=== PATIENT | female | born 1995 | race Caucasian/White ===

== ENCOUNTER 2017-08-11 12:04 | Emergency (ER) | payer OTHER ==
[2017-08-11 12:14] VITALS: RESP 16
[2017-08-11] MEDS ORDERED: BUTALB/APAP/CAFF 50-325-40MG TAB PO STA (12:26)
--- NOTE | 2017-08-11 12:40 | ED ---
General Adult HPI - General Chief complaint: Neuro Symptoms/Deficit Stated complaint: Numbness in Face, word slurring Time Seen by Provider: 08/11/17 12:19 Source: patient, family, RN notes reviewed Mode of arrival: ambulatory Limitations: no limitations - History of Present Illness Initial comments: This a 22-year-old female presents emergency Department chief complaint of numbness in her arm, slurred speech. Patient states that she woke up was in the kitchen trying to make muffins when she noticed that her right arm was numb from her elbow down. She states that she does not have any associated weakness. She states that she also noticed some numbness in her face. She had no lower extremity symptoms. Patient states that she was telling her mom on discussed above going to the chiropractor history that she fell she slept on it wrong. She states then she was having trouble articulating words. She states is only lasted a few seconds. She states all her symptoms have resolved at this time though she has some pressure in the right side of her head and feels that she is developing a migraine. She states that she typically has migraine on her menstrual cycle this is very common for her. Patient denies chest pain, palpitations, dizziness, blurred vision, illicit drug use, dysuria or hematuria. - Related Data Home Medications Medication Instructions Recorded Confirmed Fexofenadine HCl [Tia Allergy] 180 mg PO DAILY 08/11/17 08/11/17 Vienva 1 tab PO DAILY 08/11/17 08/11/17 Previous Rx's Medication Instructions Recorded SUMAtriptan SUCCINATE [Imitrex] 25 mg PO ONCE #10 tablet 08/11/17 Allergies Allergy/AdvReac Type Severity Reaction Status Date / Time tramadol Allergy Hallucinati Verified 08/11/17 12:18 ons codeine AdvReac Nausea & Verified 08/11/17 12:18 Vomiting Review of Systems ROS Statement: Those systems with pertinent positive or pertinent negative responses have been documented in the HPI. ROS Other: All systems not noted in ROS Statement are negative. Past Medical History Past Medical History: No Reported History Additional Past Medical History / Comment(s): recent uti History of Any Multi-Drug Resistant Organisms: None Reported Past Surgical History: Adenoidectomy, Tonsillectomy Additional Past Surgical History / Comment(s): l ear cyst removed Past Psychological History: No Psychological Hx Reported Smoking Status: Never smoker Past Alcohol Use History: None Reported Past Drug Use History: None Reported General Exam Limitations: no limitations General appearance: alert, in no apparent distress Head exam: Present: atraumatic, normocephalic, normal inspection Eye exam: Present: normal appearance, PERRL, EOMI. Absent: scleral icterus, conjunctival injection, periorbital swelling ENT exam: Present: normal exam, normal oropharynx, mucous membranes moist, TM's normal bilaterally, normal external ear exam Neck exam: Present: normal inspection, full ROM. Absent: tenderness, meningismus, lymphadenopathy Respiratory exam: Present: normal lung sounds bilaterally. Absent: respiratory distress, wheezes, rales, rhonchi, stridor Cardiovascular Exam: Present: regular rate, normal rhythm, normal heart sounds. Absent: systolic murmur, diastolic murmur, rubs, gallop, clicks GI/Abdominal exam: Present: soft, normal bowel sounds. Absent: distended, tenderness, guarding, rebound, rigid Extremities exam: Present: normal inspection, full ROM, normal capillary refill. Absent: tenderness, pedal edema, joint swelling, calf tenderness Back exam: Present: normal inspection, full ROM. Absent: tenderness Neurological exam: Present: alert, oriented X3, CN II-XII intact, reflexes normal, other ([id number] intact bilaterally without overshooting. GCS 15, NIH 0). Absent: motor sensory deficit Skin exam: Present: warm, dry, intact, normal color. Absent: rash Course Vital Signs 08/11/17 12:10 Temperature 97.6 F Pulse Rate 88 Respiratory 16 Rate Blood Pressure 120/86 O2 Sat by Pulse 99 Oximetry Medical Decision Making - Medical Decision Making 22-year-old female presented emergency department with headache migraine type symptoms with associated paresthesias. Patient's symptoms her more consistent with a typical migraine headache possible anxiety issues. Patient is 100% symptom-free this is less likely to be any evidence of TIA or CVA. CT is normal. Patient will be discharged with Imitrex for migraine headaches and return for any return of symptoms are worsening symptoms. Disposition Clinical Impression: Atypical migraine Disposition: HOME SELF-CARE Condition: Stable Instructions: Migraine Headache (ED) Additional Instructions: Please return to the Emergency Department if symptoms worsen or any other concerns. Prescriptions: SUMAtriptan SUCCINATE [Imitrex] 25 mg PO ONCE #10 tablet Referrals: Ector Hutton Jr, [Primary Care Provider] - 1-2 days Time of Disposition: 13:29
--- NOTE | 2017-08-11 12:48 | CT ---
EXAMINATION TYPE: CT brain wo con DATE OF EXAM: 08/11/2017 COMPARISON: NONE HISTORY: Patient complains of episode of right side numbness and dysphasia. Patient has had headache since episode. CT DLP: 761.[address] of the brain was performed. The ventricles, basal cisterns and sulci overlying the cerebral convexities demonstrate a normal appe arance. There is no evidence for intracranial hemorrhage or sulcal effacement. No mass effects are seen. Osseous calvarium is intact. Mild chronic ethmoidal sinusitis. If symptoms persist consider MRI as clinically warranted. IMPRESSION: 1. No acute intracranial process is seen at this time.
[2017-08-11] MEDS ORDERED: diphenhydrAMINE 50 MG CAP PO STA (13:26)
[2017-08-11] MEDS ORDERED: KETOROLAC 60 MG/2 ML VIAL IM STA (13:26)
[2017-08-11 13:35] VITALS: BP 117/73; PULSE 64; TEMP 97.9
== END 2017-08-11 13:45 | disposition home or self-care (01) ==
LOC: EC 12:04
DX: G43.909 Migraine, unspecified, not intractable, without status migrainosus (principal); R40.2412 Glasgow coma scale score 13-15, at arrival to emergency department; Z79.3 Long term (current) use of hormonal contraceptives; Z79.899 Other long term (current) drug therapy; Z88.5 Allergy status to narcotic agent
CPT/HCPCS: 70450; 99285; 96372; J1885

== ENCOUNTER → 2018-04-05 | Outpatient (CLI) | payer OTHER ==
--- NOTE | 2018-04-05 18:48 | XR ---
EXAMINATION TYPE: XR cervical spine w flex/ext DATE OF EXAM: 04/05/2018 COMPARISON: NONE HISTORY: Neck pain TECHNIQUE: 6 views FINDINGS: Vertebra have normal spacing and alignment. Posterior elements are intact. There are no cer vical ribs. Atlantoaxial facet joint is normal. Additional flexion-extension views show no sign of in stability. IMPRESSION: Normal cervical spine. No evidence of instability.
== END | disposition home or self-care (01) ==
LOC: RADXRMAIN 17:34
PROVIDERS: ATTEND Chiropractor
DX: S13.130A Subluxation of C2/C3 cervical vertebrae, initial encounter (principal); S13.4XXA Sprain of ligaments of cervical spine, initial encounter; G43.D1 Abdominal migraine, intractable
CPT/HCPCS: 72052

== ENCOUNTER → 2018-04-20 | Outpatient (CLI) | payer OTHER ==
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
== END | disposition home or self-care (01) ==
LOC: RADCTMAIN 16:35
PROVIDERS: ATTEND Family Medicine
DX: S00.83XA Contusion of other part of head, initial encounter (principal); G89.11 Acute pain due to trauma; G44.321 Chronic post-traumatic headache, intractable; Z88.5 Allergy status to narcotic agent
CPT/HCPCS: 70450; 72125

== ENCOUNTER → 2019-04-24 | Outpatient (CLI) | payer BC ==
[2019-04-24 10:59] LABS: Basophils % (A) 1 %; Eosinophils # (A) 0.1 k/uL (0-0.7); Eosinophils % (A) 1 %; HCT 42.2 % (34.0-46.0); HGB 13.9 gm/dL (11.4-16.0); Lymphocytes # (A) 1.7 k/uL (1.0-4.8); Lymphocytes % (A) 23 %; MCH 26.9 pg (25.0-35.0); MCHC 32.8 g/dL (31.0-37.0); MCV 81.9 fL (80.0-100.0); Mean Platelet Volume 8.6; Monocytes # (A) 0.4 k/uL (0-1.0); Monocytes % (A) 5 %; Neutrophils # (A) 5.2 k/uL (1.3-7.7); Neutrophils % (A) 69 %; Platelet Count 220 k/uL (150-450); RBC 5.16 m/uL (3.80-5.40); RDW 13.7 % (11.5-15.5); WBC 7.4 k/uL (3.8-10.6)
[2019-04-24 17:27] LABS: Vitamin D 25 Hydroxy 37.9 ng/mL (30.0-100.0)
[2019-04-24 17:56] LABS: ALT 15 U/L (8-44); AST 23 U/L (13-35); African American GFR (CKD) 121.3 (60.0-200.0); Albumin/Globulin Ratio 2.56 (1.60-3.17); Alkaline Phosphatase 80 U/L (41-126); C Reactive Protein <0.4 mg/dL (0.0-0.8); Calcium 9.3 mg/dL (8.7-10.3); Carbon Dioxide 25.2 mmol/L (21.6-31.8); Chloride 106 mmol/L (96-109); Chol/HDL Ratio 2.07; Cholesterol 114 mg/dL (0-200); Globulin 1.8 g/dL (1.6-3.3); Glucose 84 mg/dL (70-110); Potassium 4.6 mmol/L (3.5-5.5); Sodium 140 mmol/L (135-145); Total Bilirubin 0.8 mg/dL (0.3-1.2); Total Protein 6.4 g/dL (6.2-8.2); Triglycerides <50.0 mg/dL (0.0-149.0); VLDL Calculation 9.98 mg/dL (5.00-40.00)
[2019-04-24 19:26] LABS: Folate, Serum 13.8 ng/mL
[2019-04-24 19:39] LABS: Hemoglobin A1C 5.1 % (4.0-6.0)
== END | disposition home or self-care (01) ==
LOC: LABWHC1 10:06
PROVIDERS: ATTEND Clinical Nurse Specialist Psychiatric/Mental Health
DX: F31.81 Bipolar II disorder (principal)
CPT/HCPCS: 36415; 80053; 80061; 82248; 82306; 82746; 83036; 84439; 84443; 84479; 85025; 86140

== ENCOUNTER 2019-10-13 18:23 | Emergency (ER) | payer BC ==
--- NOTE | 2019-10-13 19:20 | CT ---
EXAMINATION TYPE: CT brain cspine wo con DATE OF EXAM: 10/13/2019 COMPARISON: 04/20/2018 HISTORY: Fall, left arm numbness. CT DLP: 1162.4 mGycm. Automated Exposure Control for Dose Reduction was Utilized. TECHNIQUE: CT scan of the head and cervical spine are performed without contrast. FINDINGS: There is no acute intracranial hemorrhage, mass effect, or midline shift identified. The ventricles and sulci are within normal limits in size. Small mucosal retention cyst in the right inf erior maxillary sinus. The globes are intact and the remaining visualized sinuses are clear. Cerebel lar tonsils are incidentally noted to be low-lying, likely congenital. Cervical spine is visualized in its entirety from C1 through upper thoracic levels and demonstrates s atisfactory alignment without evidence of acute fracture or dislocation. Prevertebral soft tissue ap pears within normal limits. The C1-C2 articulation is unremarkable. Reversal of the usual cervical lordosis. Evaluation of the spinal canal is limited on CT. IMPRESSION: 1. There is no acute fracture or dislocation evident in the cervical spine. Evaluation of the spinal canal is limited on CT. 2. No acute intracranial hemorrhage, mass effect, or midline shift is seen. 3. Reversal usual cervical lordosis that may be on the basis of muscular strain/spasm or patient posi tioning.
--- NOTE | 2019-10-13 19:28 | CT ---
EXAMINATION TYPE: CT thoracic spine wo con DATE OF EXAM: 10/13/2019 COMPARISON: None HISTORY: Fall, left arm numbness and back pain. CT DLP: 613.8 mGycm Automated exposure control for dose reduction was used. FINDINGS: There is a mild compression deformity of less than 10% vertebral body height loss of the T4 vertebral body at the superior endplate. No retropulsion is seen. No extension into the posterior elements. Vi sualized portions of the ribs appear intact and unremarkable. Spinal canal is limited on CT. Remainde r the vertebral body heights of the thoracic spine are maintained. No malalignment seen. Visualized portions of the lungs are well aerated. Limited images of the unenhanced upper abdomen are grossly unremarkable. Unenhanced portions of the mediastinum are also grossly unremarkable. IMPRESSION: ACUTE MILD COMPRESSION DEFORMITY OF THE T4 VERTEBRAL BODY WITH VERTEBRAL BODY HEIGHT LOSS OF LESS ROLANDO N 10%. NO EXTENSION INTO THE POSTERIOR ELEMENTS. GIVEN THE LEFT ARM NUMBNESS SPINAL CORD INJURY CANNO T BE EXCLUDED. MRI COULD EVALUATE FOR SPINAL CORD TRAUMA.
[2019-10-13] MEDS ORDERED: DEXAMETHASONE SOD PHOSPHATE 10 MG/ML 1 ML VIAL IM STA (19:45)
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
[2019-10-13 20:08] VITALS: BP 123/83; PULSE 87; RESP 16; TEMP 98.1
== END 2019-10-13 20:57 | disposition short-term general hospital (02) ==
LOC: EC 18:23
DX: M54.6 Pain in thoracic spine (principal); M43.8X4 Other specified deforming dorsopathies, thoracic region; R29.898 Other symptoms and signs involving the musculoskeletal system; R20.0 Anesthesia of skin; R20.2 Paresthesia of skin; R51 Headache; Z88.5 Allergy status to narcotic agent; W03.XXXA Other fall on same level due to collision with another person, initial encounter; Y93.6A Activity, physical games generally associated with school recess, summer camp and children
CPT/HCPCS: 72128; 72125; 70450; 99284; 96372; J1100

== ENCOUNTER → 2020-06-12 | Outpatient (CLI) | payer BC ==
[2020-06-12 12:16] LABS: Basophils # (A) 0.1 k/uL (0-0.2); Basophils % (A) 1 %; Eosinophils # (A) 0.1 k/uL (0-0.7); Eosinophils % (A) 1 %; HCT 46.3 % (34.0-46.0); HGB 14.7 gm/dL (11.4-16.0); Lymphocytes # (A) 1.9 k/uL (1.0-4.8); Lymphocytes % (A) 33 %; MCH 27.4 pg (25.0-35.0); MCHC 31.8 g/dL (31.0-37.0); MCV 86.2 fL (80.0-100.0); Mean Platelet Volume 8.6; Monocytes # (A) 0.3 k/uL (0-1.0); Monocytes % (A) 5 %; Neutrophils # (A) 3.3 k/uL (1.3-7.7); Neutrophils % (A) 58 %; Platelet Count 215 k/uL (150-450); RBC 5.37 m/uL (3.80-5.40); RDW 11.7 % (11.5-15.5); WBC 5.7 k/uL (3.8-10.6)
[2020-06-12 21:19] LABS: African American GFR (CKD) 120.4 (60.0-200.0); Albumin 4.7 g/dL (3.80-4.90); Albumin/Globulin Ratio 2.24 (1.60-3.17); Anion Gap 9.1 mmol/L (4.00-12.00); BUN/Creat Ratio 17.5 Ratio (12.00-20.00); Calcium 9.6 mg/dL (8.7-10.3); Carbon Dioxide 25.9 mmol/L (21.6-31.8); Globulin 2.1 g/dL (1.6-3.3); Magnesium 1.9 mg/dL (1.5-2.4); Non-African American GFR(CKD) 103.9 (60.0-200.0); Potassium 4.6 mmol/L (3.5-5.5); Total Bilirubin 0.6 mg/dL (0.2-1.2); Total Protein 6.8 g/dL (6.2-8.2)
== END | disposition home or self-care (01) ==
LOC: LABWHC1 11:21
PROVIDERS: ATTEND Family Medicine
DX: J31.0 Chronic rhinitis (principal); K29.70 Gastritis, unspecified, without bleeding; R11.2 Nausea with vomiting, unspecified
CPT/HCPCS: 36415; 80053; 83735; 84443; 85025

== ENCOUNTER → 2020-07-29 | Outpatient (CLI) | payer BC ==
--- NOTE | 2020-07-29 16:19 | US ---
EXAMINATION TYPE: US venous doppler duplex LE LT DATE OF EXAM: 07/29/2020 4:07 PM COMPARISON: NONE CLINICAL HISTORY: LLE I80.9 Phlebitis and thrombophlebitis. Pain SIDE PERFORMED: Left TECHNIQUE: The lower extremity deep venous system is examined utilizing real time linear array sonog jeancarlos with graded compression, doppler sonography and color-flow sonography. VESSELS IMAGED: Common Femoral Vein Deep Femoral Vein Greater Saphenous Vein * Femoral Vein Popliteal Vein Small Saphenous Vein * Proximal Calf Veins (* superficial vessels) Left Leg: Negative for DVT Grayscale, color doppler, spectral doppler imaging performed of the deep veins of the left lower extr emity. There is normal flow, compressibility, vascular waveforms. IMPRESSION: No ultrasound evidence for acute DVT in the left lower extremity.
== END | disposition home or self-care (01) ==
LOC: RADUSWWP 15:44
PROVIDERS: ATTEND Orthopaedic Surgery
DX: I80.3 Phlebitis and thrombophlebitis of lower extremities, unspecified (principal); M25.562 Pain in left knee; S83.142A Lateral subluxation of proximal end of tibia, left knee, initial encounter

== ENCOUNTER 2020-08-22 08:55 | Day surgery (SDC) | payer BC ==
[2020-08-20 13:35] VITALS: BMI 21.7
[~2020-08-22 08:55] MED LIST: LACTATED RINGERS 1,000 ML IV SCH; LIDOCAINE 1% (10MG/ML) FOR IV START INTRADERMA PRN
[2020-08-22 09:15] VITALS: TEMP 97.8
[2020-08-22] MEDS ORDERED: LACTATED RINGERS 1,000 ML IV ONE (09:21)
[2020-08-22] MEDS ORDERED: ONDANSETRON 4 MG/2 ML VIAL ONE (09:23)
[2020-08-22] MEDS ORDERED: ONDANSETRON 4 MG/2 ML VIAL IVP ONE (09:24)
[2020-08-22] MEDS ORDERED: SCOPOLAMINE 1.5MG/72HR PATCH TRANSDERM ONE (09:25)
[2020-08-22] MEDS ORDERED: LIDOCAINE 1% INJ 10MG/ML (20 ML MDV) ONE (09:57)
[2020-08-22] MEDS ORDERED: PROPOFOL 10 MG/ML 20 ML VIAL IV ONE (09:57)
--- NOTE | 2020-08-22 10:26 | P.PCN ---
Date of Procedure: 08/22/20 Procedure(s) Performed: BRIEF HISTORY: Patient is a 25-year-old, pleasant, female scheduled for an upper endoscopy as part of evaluation of chronic intermittent nausea vomiting for the last 5 years duration. She tried Prilosec in the past with no help. These episodes of happens once a month and lasts for a couple of weeks.. PROCEDURE PERFORMED: Esophagogastroduodenoscopy with biopsy. PREOPERATIVE DIAGNOSIS: Chronic intermittent nausea vomiting for 5 years duration. IV sedation per anesthesia. PROCEDURE: After informed consent was obtained, the patient was brought into the endoscopy unit. IV sedation was administered by Anesthesia under continuous monitoring. Initially the Olympus GIF-140 video endoscope was inserted into the mouth. Esophagus intubated without any difficulty. It was gradually advanced into the stomach and duodenum and carefully examined. The bulb and the second part of the duodenum appeared normal. The done from the duodenum to rule out celiac disease. The scope at this time was withdrawn to the stomach, adequately insufflated with air, and upon careful examination, mucosa of the antrum and mild gastritis and biopsies were done from this area. The, body, cardia and the fundus appeared normal. The scope was then withdrawn into the esophagus. The GE junction was located at 39 cm from the incisors. The esophagus appeared normal. There were no erosions or ulcerations seen, biopsies were done from the distal esophagus and the patient tolerated the procedure well. IMPRESSION: 1. Mild antral gastritis. 2. No evidence of esophagitis or peptic ulcer disease. RECOMMENDATIONS: The findings of this examination were discussed with the patient as well as her family. She was advised to follow with the biopsy results. She will continue with her current medications and she'll be seen in office in 2 weeks..
[2020-08-22 11:01] VITALS: BP 99/62; PULSE 90; RESP 20
== END 2020-08-22 11:03 | disposition home or self-care (01) ==
LOC: ORWHC2ENDO 08:55
PROVIDERS: ATTEND Internal Medicine Gastroenterology
DX: K29.50 Unspecified chronic gastritis without bleeding (principal); F31.9 Bipolar disorder, unspecified; Z79.899 Other long term (current) drug therapy; Z88.5 Allergy status to narcotic agent
CPT/HCPCS: 81025; 88305; 43239; J2405; J2001; J2704

== ENCOUNTER → 2020-09-11 | Outpatient (CLI) | payer BC ==
--- NOTE | 2020-09-11 15:34 | NM ---
EXAMINATION TYPE: NM hepatobiliary w EF DATE OF EXAM: 09/11/2020 COMPARISON: Previous exam is dated August 09, 2012 HISTORY: Vomiting TECHNIQUE: After the intravenous administration of 5.2 mCi Tc 99m Mebrofenin hepatobiliary scintigrap hy is performed. Immediate images post injection. FINDINGS: There is satisfactory initial accumulation of tracer by the liver. The gallbladder is visualized wit hin 8 minutes. The small bowel activity is noted within 8 minutes. At one hour 8 ounces of oral ens ure plus is given to mimic CCK and gallbladder ejection fraction is calculated at 59 %, in the normal range. Therefore there is no scintigraphic evidence of cystic or common bile duct obstruction to montejo ggest acute cholecystitis or gallbladder dyskinesia. IMPRESSION: Exam is within normal limits.
== END | disposition home or self-care (01) ==
LOC: RADNMMAIN 12:48
PROVIDERS: ATTEND Internal Medicine Gastroenterology
DX: R11.2 Nausea with vomiting, unspecified (principal)
CPT/HCPCS: 78226; A9537

== ENCOUNTER 2021-11-24 12:36 | Emergency (ER) | payer BC ==
[2021-11-24 12:54] VITALS: BP 116/75; PULSE 102; RESP 22; TEMP 98.1
[2021-11-24 13:40] LABS: Appearance,Urine Clear (Clear); Bilirubin,Urine Negative (Negative); Blood,Urine Large (Negative); Color,Urine Light Yellow; Glucose,Urine (UA) Negative (Negative); Ketones,Urine Trace (Negative); Leukocyte Esterase,Urine Negative (Negative); Mucus,Urine Rare /hpf; Nitrite,Urine Negative (Negative); Protein,Urine Negative (Negative); RBC,Urine >182 /hpf (0-5); Specific Gravity,Urine 1.012 (1.001-1.035); Squamous Epithelial Cell,Urine 1 /hpf (0-4); Urobilinogen,Urine <2.0 mg/dL (<2.0); WBC,Urine 1 /hpf (0-5)
[2021-11-24 15:13] LABS: Basophils % (A) 0 %; Eosinophils # (A) 0.1 k/uL (0-0.7); Eosinophils % (A) 1 %; HCT 43.2 % (34.0-46.0); HGB 14.2 gm/dL (11.4-16.0); Lymphocytes # (A) 1.9 k/uL (1.0-4.8); Lymphocytes % (A) 21 %; MCH 28.2 pg (25.0-35.0); MCHC 32.9 g/dL (31.0-37.0); MCV 85.7 fL (80.0-100.0); Mean Platelet Volume 8.9; Monocytes # (A) 0.5 k/uL (0-1.0); Monocytes % (A) 6 %; Neutrophils # (A) 6.5 k/uL (1.3-7.7); Neutrophils % (A) 71 %; Platelet Count 232 k/uL (150-450); RBC 5.04 m/uL (3.80-5.40); RDW 12.1 % (11.5-15.5); WBC 9.1 k/uL (3.8-10.6)
[2021-11-24 15:18] LABS: ALT 13 U/L (4-34); AST 22 U/L (14-36); African American GFR (CKD) >90 (>60 ml/min/1.73 sqM); Albumin 4.3 g/dL (3.5-5.0); Alkaline Phosphatase 59 U/L (38-126); Amylase 43 U/L (30-110); Anion Gap 7 mmol/L; Blood Urea Nitrogen 13 mg/dL (7-17); Calcium 9.3 mg/dL (8.4-10.2); Carbon Dioxide 28 mmol/L (22-30); Chloride 105 mmol/L (98-107); Glucose 79 mg/dL (74-99); Lipase 68 U/L (23-300); Non-African American GFR(CKD) >90 (>60 ml/min/1.73 sqM); Potassium 3.8 mmol/L (3.5-5.1); Sodium 140 mmol/L (137-145); Total Bilirubin 0.7 mg/dL (0.2-1.3)
== END 2021-11-24 16:41 | disposition left against medical advice (07) ==
LOC: EC 12:36
DX: Z53.21 Procedure and treatment not carried out due to patient leaving prior to being seen by health care provider (principal)
CPT/HCPCS: 36415; 80053; 81001; 81025; 82150; 83690; 85025; 99499

== ENCOUNTER → 2022-01-11 | Outpatient (CLI) | payer BC ==
[2022-01-11 22:30] LABS: Basophils # (A) 0.04 X 10*3/uL (0.00-0.10); Basophils % (A) 0.5 %; Eosinophils # (A) 0.01 X 10*3/uL (0.04-0.35); Eosinophils % (A) 0.1 %; HCT 40.4 % (37.2-46.3); HGB 12.8 g/dL (12.0-15.0); Immature Grans, Automated 0.2 %; Lymphocytes # (A) 2.17 X 10*3/uL (0.90-5.00); MCH 27.5 pg (27.0-32.0); MCHC 31.7 g/dL (32.0-37.0); MCV 86.7 fL (80.0-97.0); Mean Platelet Volume 12.6 fL (9.5-12.2); Monocytes # (A) 0.41 X 10*3/uL (0.20-1.00); Monocytes % (A) 4.9 %; NRBC Per 100 WBC 0 /100 WBCS (0.0-0.0); Neutrophils # (A) 5.69 X 10*3/uL (1.80-7.70); Neutrophils % (A) 68.3 %; Platelet Count 216 X 10*3/uL (140-440); RBC 4.66 X 10*6/uL (4.10-5.20); RDW 11.9 % (11.5-14.5); WBC 8.34 X 10*3/uL (4.50-10.00)
[2022-01-11 23:18] LABS: African American GFR (CKD) 116.4 (60.0-200.0); Albumin 4.3 g/dL (3.8-4.9); Albumin/Globulin Ratio 2.15 (1.60-3.17); BUN/Creat Ratio 10.66 Ratio (12.00-20.00); Blood Urea Nitrogen 8.7 mg/dL (9.0-27.0); Calcium 9.5 mg/dL (8.7-10.3); Carbon Dioxide 24.3 mmol/L (20.0-27.5); Non-African American GFR(CKD) 100.5 (60.0-200.0); Potassium 4.2 mmol/L (3.5-5.5); T4, Free (Free Thyroxine) 1.21 ng/dL (0.800-1.800); Total Bilirubin 0.3 mg/dL (0.30-1.20); Total Protein 6.3 g/dL (6.2-8.2)
== END | disposition home or self-care (01) ==
LOC: LABWHC1 14:21
PROVIDERS: ATTEND Nurse Practitioner Family
DX: Z00.00 Encounter for general adult medical examination without abnormal findings (principal); L65.9 Nonscarring hair loss, unspecified; R63.4 Abnormal weight loss; R53.83 Other fatigue
CPT/HCPCS: 36415; 80053; 82306; 84439; 84443; 85025